=== PATIENT | female | born 1995 ===

== ENCOUNTER 2018-02-23 03:29 | Inpatient (IN) | payer OTHER ==
[~2018-02-23] VITALS: Ht 154.9 cm; Wt 65.8 kg
[~2018-02-23 03:29] MED LIST: PRENATAL CAPLE1 EACH
== END 2018-02-24 16:50 | disposition home or self-care (01) | DRG 446 ==
LOC: ER 03:29 → SEC-K 13:28 → MEDJ 13:28
PROC: BW40ZZZ Ultrasonography of Abdomen (ICD-10-PCS; principal; 2018-02-23)
PROC: BF37ZZZ Magnetic Resonance Imaging (MRI) of Pancreas (ICD-10-PCS; 2018-02-23)
DX: K80.80 Other cholelithiasis without obstruction (principal); K29.00 Acute gastritis without bleeding